=== PATIENT | male | born 2000 | race Caucasian/White ===

== ENCOUNTER 2021-02-10 12:11 | Emergency (ER) | payer SELFPAY ==
[~2021-02-10] VITALS: Ht 195.6 cm; Wt 99.0 kg
[2021-02-10] MEDS ORDERED: ONDA4TAB7 PO (13:30)
--- NOTE | 2021-02-10 13:32 | PHYS DOC ---
Past History Past Medical History: No Pertinent History Past Surgical History: No Surgical History Alcohol Use: None General Adult EDM: Chief Complaint: FEVER HPI: HPI: Patient is a 20-year-old male presents with nausea/vomiting/diarrhea for 2 days. Patient states he was running a fever this morning at home 101. Denies taking Tylenol or ibuprofen. Denies abdominal pain. Denies shortness of breath or cough. Denies recent exposure to illness. Denies health history. Review of Systems: Review of Systems: Constitutional: Reports fever and chills Eyes: Denies change in visual acuity HENT: Denies nasal congestion or sore throat Respiratory: Denies cough or shortness of breath Cardiovascular: Denies chest pain or edema GI: Denies abdominal pain. Reports nausea, vomiting, diarrhea : Denies dysuria Musculoskeletal: Denies back pain or joint pain Integument: Denies rash Neurologic: Denies headache, focal weakness or sensory changes Endocrine: Denies polyuria or polydipsia Lymphatic: Denies swollen glands Psychiatric: Denies depression or anxiety Allergies: Allergies: Allergies Coded Allergies Type Severity Reaction Last Updated Verified No Known Drug Allergies 02/10/21 No Physical Exam: PE: Constitutional: Well developed, well nourished, no acute distress, non-toxic appearance HENT: bilateral external ears normal, oropharynx moist, no oral exudates, nose normal Eyes: PERRLA, EOMI, conjunctiva normal, no discharge. Neck: Normal range of motion, no tenderness, supple, no stridor Cardiovascular:Heart rate regular rhythm, no murmur Lungs & Thorax: Bilateral breath sounds clear to auscultation Abdomen: Bowel sounds normal, soft, no tenderness, no masses, Skin: Warm, dry, no erythema, no rash. [] Back: No tenderness, no CVA tenderness. [] Extremities: No tenderness, no cyanosis, no clubbing, Neurologic: Alert and oriented X 3, normal motor function, normal sensory function, Psychologic: Affect normal, judgement normal, mood normal. [] Current Patient Data: Vital Signs: Vital Signs Date Time Temp Pulse Resp B/P (MAP) Pulse Ox O2 Delivery O2 Flow Rate FiO2 02/10/21 12:22 99.5 115 20 141/95 (110) 95 Room Air EKG: EKG: [] Radiology/Procedures: Radiology/Procedures: [] Heart Score: C/O Chest Pain: No Risk Factors: Risk Factors: DM, Current or recent (<one month) smoker, HTN, HLP, family history of CAD, obesity. Risk Scores: Score 0 - 3: 2.5% MACE over next 6 weeks - Discharge Home Score 4 - 6: 20.3% MACE over next 6 weeks - Admit for Clinical Observation Score 7 - 10: 72.7% MACE over next 6 weeks - Early Invasive Strategies Course & Med Decision Making: Course & Med Decision Making Pertinent Labs and Imaging studies reviewed. (See chart for details) [] Patient presents to emergency room with nausea/vomiting/diarrhea, fever for 2 days. Patient reports that he has vomited a total of 2 times. Patient denies taking anything at home for fever or nausea. Patient given Zofran for nausea. Patient given ibuprofen for headache. Patient is afebrile. Mom called emergency room and spoke with RN. Mom states "I am concerned he has Covid and would like him to be tested". "I would also like him to have a chest x-ray". Patient denies cough or shortness of breath. Patient reports that nausea has improved after Zofran. Chest x-ray is negative for any acute abnormalities.Patient likely has viral gastroenteritis. Patient instructed to make sure he is drinking plenty of fluids. Zofran prescribed for nausea at home. Instructed patient to follow-up with PCP in 2 days if not improved. Take ibuprofen and Tylenol at home for discomfort and fever. Patient to return to the emergency room with worsening symptoms or concerns. Dragon Disclaimer: Hansel Disclaimer: This electronic medical record was generated, in whole or in part, using a voice recognition dictation system. Departure Departure: Impression: Primary Impression: Viral syndrome Disposition: HOME / SELF CARE / HOMELESS Condition: STABLE Referrals: PCP,NO (PCP) Patient Instructions: Nausea and Vomiting, [place] Additional Instructions: Serum for nausea/vomiting/diarrhea, fever. You were given Zofran in the emergency room for nausea. I am also sending you home with a prescription for Zofran to treat nausea at home. Please take ibuprofen and Tylenol at home for fevers and discomfort. Please return to the emergency room with worsening s ymptoms or concerns. EMERGENCY DEPARTMENT GENERAL DISCHARGE INSTRUCTIONS Thank you for coming to [facility] (ED) today and trusting us with you care. We trust that you had a positivie experience in our Emergency Department. If you wish to speak to the department management, you may call the director at [phone]. YOUR FOLLOW UP INSTRUCTIONS ARE FOLLOWS: 1. Do you have a private Doctor? If you do not have a private doctor, please ask for a resource list of physicians or clinics that may be able to assist you with follow up care. 2. The Emergency Physician has interpreted your x-rays. The X-Ray specialist will also review them. If there is a change in the findings, you will be notified in 48 hours when at all possible. 3. A lab test or culture has been done, your results will be reviewed and you will be notified if you need a change in treatment. ADDITIONAL INSTRUCTIONS AND INFORMATION: 1. Your care today has been supervised by a physician who is specially trained in emergency care. Many problems require more than one evaluation for a complete diagnosis and treatment. We recommend that you schedule your follow up appointment as recommended to ensure complete treatment of you illness or injury. If you are unable to obtain follow up care and continue to have a problem, or if your condition worsens, we recommend that you return to the ED. 2. We are not able to safely determine your condition over the phone nor are we able to give sound medical advice over the phone. For these safety reasons, if you call for medical advice we will ask you to come to the ED for further evaluation. 3. If you have any questions regarding these discharge instructions please call the ED at [phone]. SAFETY INFORMATION: In the interest of safety, wellness, and injury prevention; we encourage you to wear your sealbelt, if you smoke; quite smoking, and we encourage family to use a protective helmet for bicycling and other sporting events that present an increased risk for head injury. IF YOUR SYMPTOMS WORSEN OR NEW SYMPTOMS DEVELOP, OR YOU HAVE CONCERNS ABOUT YOUR CONDITION; OR IF YOUR CONDITION WORSENS WHILE YOU ARE WAITING FOR YOUR FOLLOW UP APPOINTMENT; EITHER CONTACT YOUR PRIMARY CARE DOCTOR, THE PHYSICIAN WHOSE NAME AND NUMBER YOU WERE GIVEN, OR RETURN TO THE ED IMMEDIATELY. Scripts Ondansetron Hcl (ZOFRAN) 4 Mg Tablet 4 MG PO TID PRN PRN for NAUSEA, #9 TAB Prov: CRISTIANO BELTRAN APRN 02/10/21 CRISTIANO BELTRAN APRN Feb 10, 2021 13:32
[2021-02-10] MEDS ORDERED: ONDANSETRON PF 4 MG/2 ML VIAL. IVP ONE (14:30)
[2021-02-10] MEDS ORDERED: ONDANSETRON ODT 4 MG TAB.RAPDIS PO ONE (14:30)
[2021-02-10] MEDS ORDERED: IBUPROFEN 600 MG TABLET. PO ONE (15:15)
--- NOTE | 2021-02-10 15:17 | RAD ---
AP chest. HISTORY: Fever AP view was taken of the chest. Heart is normal in size. There is no effusion. There are no confluent infiltrates. IMPRESSION: 1. No acute infiltrates. Electronically signed by: Scar Clark MD (02/10/2021 3:15 PM) [facility]
[2021-02-10 15:39] VITALS: BP 143/78
== END 2021-02-10 15:41 | disposition home or self-care (01) ==
LOC: ER 12:11
DX: B34.9 Viral infection, unspecified (principal); Z20.822 Contact with and (suspected) exposure to COVID-19
CPT/HCPCS: 71045; 99285; C9803; Q0162; U0003; U0005

== ENCOUNTER 2021-04-09 18:26 | Emergency (ER) | payer SELFPAY ==
[~2021-04-09] VITALS: Ht 188 cm; Wt 96.7 kg
[~2021-04-09 18:26] MED LIST: ONDA4TAB7 PO
[2021-04-09] MEDS ORDERED: LIDOCAINE/EPI/TETRACAINE TOPICAL GEL 3 ML. TP ONE ×2 (18:45→20:00)
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
[2021-04-09] MEDS ORDERED: DIPH,PERTUSS(ACELL),TET VAC/PF 0.5 ML SYRINGE. VAX IM ONE (19:00)
--- NOTE | 2021-04-09 19:14 | RAD ---
Exam: Bilateral feet 2 views INDICATION: Foreign body TECHNIQUE: Frontal and lateral views of the left and right foot Comparisons: None FINDINGS: Left foot: Bone mineralization is normal. No acute or healed fractures. Soft tissue irregularity noted at the le yanet of the metatarsal heads on lateral view. There are a few tiny radiodensity is noted adjacent to t he irregularity. Joint spaces are well-maintained. Right foot: Bone mineralization is normal. No acute or healed fractures. Soft tissues are unremarkable. Joint spa tommy are well-maintained. IMPRESSION: 1. Soft tissue irregularity at the level of the metatarsal heads at the left foot with tiny suspecte d foreign bodies. Correlate with physical exam. 2. No acute osseous abnormality of the right foot. Electronically signed by: Alka Guzman MD (04/09/2021 7:12 PM) [facility]
[2021-04-09] MEDS ORDERED: BACITRACIN ZINC TOPICAL OINT PACKET. TP ONE (20:15)
[2021-04-09] MEDS ORDERED: HYDR-2759 PO (20:25)
[2021-04-09] MEDS ORDERED: IBUP800T19 PO (20:25)
[2021-04-09 20:36] VITALS: BP 143/78
[2021-04-09] MEDS ORDERED: HYDROcodone/APAP 10/325 1 TAB TABLET ONE (21:21)
[2021-04-09] MEDS ORDERED: BACI28.43 TP (21:23)
[2021-04-09] MEDS ORDERED: HYDROcodone/APAP 10/325 1 TAB TABLET PO ONE (22:00)
== END 2021-04-09 21:30 | disposition home or self-care (01) ==
LOC: ER 18:26
DX: T25.121A Burn of first degree of right foot, initial encounter (principal); T25.122A Burn of first degree of left foot, initial encounter; X19.XXXA Contact with other heat and hot substances, initial encounter; Y93.89 Activity, other specified; Y92.89 Other specified places as the place of occurrence of the external cause; Y99.8 Other external cause status
CPT/HCPCS: 16000; 73620; 90471; 90715; 96372; 99285; J3010